=== PATIENT | male | born 1935 | race Caucasian/White ===

== ENCOUNTER 2023-01-15 05:27 | Inpatient (IN) | payer MEDICARE ==
[2023-01-15] MEDS ORDERED: Nitroglycerin 50 MG/250 ML BOT 250 ML ONE (05:41)
[2023-01-15 06:01] LABS: #Eosinphils 3.3 thou/uL (0.0-0.7); #Monocytes 0.8 thou/uL (0.11-0.59); %Basophils 0.2 % (0.0-1.0); %Eosinophils 18.1 % (0.0-10.0); %Lymphocytes 4.2 % (21.0-51.0); %Monocytes 4.6 % (0.0-10.0); %Neutrophils 72.4 % (42.0-75.0); Hematocrit 33.8 % (42.0-52.0); Hemoglobin 11.5 g/dL (14.0-18.0); Mean Corpuscular Hemoglobin 31.3 pg (27.0-31.0); Mean Corpuscular Volume 91.8 fl (78.0-98.0); Mean Platelet Volume 9.4 fL (7.4-10.4); Platelet Count 297 10x3/uL (130-400); Red Blood Cell (RBC) Count 3.68 mill/uL (4.70-6.10)
[2023-01-15 06:23] LABS: Troponin I 0.018 ng/mL (< 0.028)
[2023-01-15 06:26] LABS: ALT (SGPT) 10 U/L (8-55); AST (SGOT) 12 U/L (5-34); Albumin 4.3 g/dL (3.4-4.8); Alkaline Phosphatase 93 U/L (40-110); Anion Gap 17 mmol/L (10-20); BUN (Urea Nitrogen) 20 mg/dL (8.4-25.7); Bilirubin, Total 0.4 mg/dL (0.2-1.2); Calc. Creatinine Clearance 0 mL/min (70-130); Calcium 9.1 mg/dL (7.8-10.44); Carbon Dioxide 24 mmol/L (23-31); Chloride 98 mmol/L (98-107); Estimated GFR 42; Globulin 2.7 g/dL (2.4-3.5); Glucose 207 mg/dL (83-110); Sodium 135 mmol/L (136-145)
[2023-01-15 06:28] LABS: INR-International Normal Ratio 1.2; PTT 58.2 sec (22.9-36.1); Prothrombin Time 15.6 sec (12.0-14.7)
[2023-01-15] MEDS ORDERED: Ondansetron PF 4 MG/2 ML Vial IVP PRN (07:39)
[2023-01-15] MEDS ORDERED: Ondansetron ODT 4 MG TAB PO PRN (07:39)
[2023-01-15] MEDS: Aspirin Chewable 81 MG TAB PO SCH (09:26)
[2023-01-15 09:57] VITALS: BMI 28.3
[2023-01-15] MEDS ORDERED: Amlodipine 5 MG TAB PO SCH (10:15)
[2023-01-15] MEDS ORDERED: Atenolol 25 MG TAB PO SCH (10:15)
[2023-01-15 10:40] LABS: Magnesium 1.6 mg/dL (1.6-2.6)
[2023-01-15 11:10] LABS: Troponin I 3.279 ng/mL (< 0.028)
[2023-01-15] MEDS: Clopidogrel Bisulfate 75 MG TAB PO SCH (11:34)
[2023-01-15 13:32] LABS: Troponin I 6.498 ng/mL (< 0.028)
[2023-01-15] MEDS ORDERED: FLU VACC QS2023(65UP)/MF59C/PF 60 MCG/0.5 ML SYRINGE IM ONE (14:00)
[2023-01-15] MEDS: Acetaminophen 325 MG TAB PO PRN (16:48)
[2023-01-15] MEDS: Famotidine 20 MG TAB PO SCH (21:25)
[2023-01-16 04:54] LABS: Hematocrit 31.7 % (42.0-52.0); Hemoglobin 10.4 g/dL (14.0-18.0); Manual Diff?? YES; Mean Corpuscular HGB CONC 32.8 g/dL (32.0-36.0); Mean Corpuscular Hemoglobin 30.6 pg (27.0-31.0); Mean Corpuscular Volume 93.2 fl (78.0-98.0); Mean Platelet Volume 9.6 fL (7.4-10.4); Platelet Count 274 10x3/uL (130-400); RBC Distribution Width 14.3 % (11.5-14.5); White Blood Cell (WBC) Count 11.4 10x3/uL (4.8-10.8)
[2023-01-16 05:02] LABS: Delete Auto Diff?? YES
[2023-01-16 05:18] LABS: Critical Call Chem Troponin I RESULT DECREASING; Troponin I 4.759 ng/mL (< 0.028)
[2023-01-16 05:27] LABS: Anion Gap 13 mmol/L (10-20); BUN (Urea Nitrogen) 21 mg/dL (8.4-25.7); Calc. Creatinine Clearance 50 mL/min (70-130); Calcium 8.8 mg/dL (7.8-10.44); Carbon Dioxide 28 mmol/L (23-31); Chloride 99 mmol/L (98-107); Estimated GFR 46; Glucose 133 mg/dL (83-110); Magnesium 1.9 mg/dL (1.6-2.6); Potassium 3.8 mmol/L (3.5-5.1); Sodium 136 mmol/L (136-145)
[2023-01-16 05:32] LABS: Band 8 % (5-11); CellaVision Operator ID LAB.CLH1; Eosinophils 36 % (0-10); Hypochromia SLIGHT = 6-15 cells HPF (0-5); Lymphocytes 10 % (21-51); Macrocytosis SLIGHT = 6-15 cells HPF (0-5); Monocytes 1 % (0-10); Neutrophil 44 % (42-75); Platelet Adequacy Comment Platelets Normal; Poikilocytosis MODERATE=16-30 cells HPF (0-5); Polychromasia SLIGHT = 2-3 cells HPF (0-2); Total Cell Count 100
[2023-01-16] MEDS: Aspirin Chewable 81 MG TAB PO SCH (08:44)
[2023-01-16] MEDS: Clopidogrel Bisulfate 75 MG TAB PO SCH (08:44)
[2023-01-16] MEDS: Amlodipine 5 MG TAB PO SCH (08:44)
[2023-01-16] MEDS: Atenolol 25 MG TAB PO SCH (08:44)
[2023-01-16] MEDS ORDERED: HumaLOG 300 UNITS/3 ML VIAL SC PRN (09:30)
[2023-01-16] MEDS ORDERED: Dextrose 5% in Water 1,000 ML IV PRN (09:30)
[2023-01-16] MEDS ORDERED: Dextrose 50% Abboject 50 ML SYRINGE SLOW IVP PRN (09:30)
[2023-01-16] MEDS ORDERED: Glucagon 1 MG/ML KIT IM PRN (09:30)
[2023-01-16] MEDS ORDERED: Senokot 8.6 MG TAB PO PRN (18:32)
[2023-01-16] MEDS: Acetaminophen 325 MG TAB PO PRN (19:27)
[2023-01-16] MEDS: Famotidine 20 MG TAB PO SCH (19:28)
[2023-01-17] MEDS: Clopidogrel Bisulfate 75 MG TAB PO SCH (09:51)
[2023-01-17] MEDS: Atenolol 25 MG TAB PO SCH (09:51)
[2023-01-17] MEDS: Amlodipine 5 MG TAB PO SCH (09:51)
[2023-01-17] MEDS: Aspirin Chewable 81 MG TAB PO SCH (09:51)
[2023-01-17] MEDS ORDERED: Communication Order-Pharmacy FS SCH (13:00)
[2023-01-17] MEDS: Sodium Chloride 0.9% 1,000 ML IV SCH ×2 (17:09→21:47)
[2023-01-17] MEDS: Famotidine 20 MG TAB PO SCH (21:10)
[2023-01-18] MEDS: Sodium Chloride 0.9% 1,000 ML IV SCH ×4 (05:51→21:50)
[2023-01-18] MEDS: Aspirin Chewable 81 MG TAB PO SCH (05:52)
[2023-01-18] MEDS: Clopidogrel Bisulfate 75 MG TAB PO SCH (05:52)
[2023-01-18] MEDS: Atenolol 25 MG TAB PO SCH (05:52)
[2023-01-18] MEDS: Amlodipine 5 MG TAB PO SCH (05:53)
[2023-01-18 06:14] LABS: Hemoglobin 10.1 g/dL (14.0-18.0); Manual Diff?? YES; Mean Corpuscular HGB CONC 33.7 g/dL (32.0-36.0); Mean Corpuscular Hemoglobin 30.9 pg (27.0-31.0); Mean Corpuscular Volume 91.7 fl (78.0-98.0); Mean Platelet Volume 9.8 fL (7.4-10.4); Platelet Count 255 10x3/uL (130-400); Red Blood Cell (RBC) Count 3.27 mill/uL (4.70-6.10); White Blood Cell (WBC) Count 12.1 10x3/uL (4.8-10.8)
[2023-01-18 06:17] LABS: Delete Auto Diff?? YES
[2023-01-18 06:38] LABS: Anion Gap 12 mmol/L (10-20); BUN (Urea Nitrogen) 19 mg/dL (8.4-25.7); Calc. Creatinine Clearance 54 mL/min (70-130); Calcium 8.8 mg/dL (7.8-10.44); Carbon Dioxide 27 mmol/L (23-31); Chloride 103 mmol/L (98-107); Estimated GFR 52; Glucose 122 mg/dL (83-110); Potassium 3.9 mmol/L (3.5-5.1); Sodium 138 mmol/L (136-145)
[2023-01-18 06:43] LABS: Band 10 % (5-11); CellaVision Operator ID LAB.CLH1; Eosinophils 46 % (0-10); Hypochromia SLIGHT = 6-15 cells HPF (0-5); Lymphocytes 14 % (21-51); Metamyelocyte 1 % (0-0); Monocytes 1 % (0-10); Neutrophil 29 % (42-75); Platelet Adequacy Comment Platelets Normal; Polychromasia SLIGHT = 2-3 cells HPF (0-2); Total Cell Count 101
[2023-01-18] MEDS ORDERED: Lidocaine 1% (PF) 30 ML VIAL ONE (09:14)
[2023-01-18] MEDS ORDERED: Heparin 10,000 UNITS/ 10 ML VIAL ONE (09:14)
[2023-01-18] MEDS ORDERED: Midazolam HCl 2 mg/2 ml Vial ONE (11:42)
[2023-01-18] MEDS ORDERED: fentaNYL 50 mcg/mL 1 mL Vial ONE (11:42)
[2023-01-18] MEDS ORDERED: Nitroglycerin 0.4 MG TAB (25 Tab Bottle) SL PRN (12:43)
[2023-01-18] MEDS ORDERED: Sodium Chloride 0.9% 200 ML IV PRN (12:43)
[2023-01-18] MEDS ORDERED: Acetaminophen/Codeine 30-300mg Tablet PO PRN ×2 (12:43)
[2023-01-18] MEDS: Famotidine 20 MG TAB PO SCH (21:47)
[2023-01-19] MEDS: Sodium Chloride 0.9% 1,000 ML IV SCH (07:30)
[2023-01-19 08:12] VITALS: TEMP 98.5
[2023-01-19] MEDS: Clopidogrel Bisulfate 75 MG TAB PO SCH (08:28)
[2023-01-19] MEDS: Atenolol 25 MG TAB PO SCH (08:28)
[2023-01-19] MEDS: Aspirin Chewable 81 MG TAB PO SCH (08:29)
[2023-01-19] MEDS: Amlodipine 5 MG TAB PO SCH (08:29)
[2023-01-19] MEDS ORDERED: Isosorbide Mononitrate 30 MG ER.TAB PO SCH (09:00)
[2023-01-19 09:20] LABS: Anion Gap 13 mmol/L (10-20); BUN (Urea Nitrogen) 13 mg/dL (8.4-25.7); Calc. Creatinine Clearance 48 mL/min (70-130); Calcium 8.7 mg/dL (7.8-10.44); Carbon Dioxide 23 mmol/L (23-31); Chloride 102 mmol/L (98-107); Estimated GFR 63; Glucose 131 mg/dL (83-110); Potassium 3.9 mmol/L (3.5-5.1); Sodium 134 mmol/L (136-145)
[2023-01-19 12:17] VITALS: BP 136/66
== END 2023-01-19 13:48 | disposition home or self-care (01) | DRG 280 ==
LOC: ERS 05:27 → SUATTDRO 05:27 → INTOOBSV 07:35 → 2NO 07:35 → OBSVTOIN 12:02
PROVIDERS: ADMIT Internal Medicine; ATTEND Internal Medicine
PROC: 4A023N7 Measurement of Cardiac Sampling and Pressure, Left Heart, Percutaneous Approach (ICD-10-PCS; principal; 2023-01-18)
PROC: B2151ZZ Fluoroscopy of Left Heart using Low Osmolar Contrast (ICD-10-PCS; 2023-01-18)
PROC: B2111ZZ Fluoroscopy of Multiple Coronary Arteries using Low Osmolar Contrast (ICD-10-PCS; 2023-01-18)
DX: I21.4 Non-ST elevation (NSTEMI) myocardial infarction (principal); I50.33 Acute on chronic diastolic (congestive) heart failure; I13.0 Hypertensive heart and chronic kidney disease with heart failure and stage 1 through stage 4 chronic kidney disease, or unspecified chronic kidney disease; I25.110 Atherosclerotic heart disease of native coronary artery with unstable angina pectoris; E78.5 Hyperlipidemia, unspecified; E11.22 Type 2 diabetes mellitus with diabetic chronic kidney disease; I25.2 Old myocardial infarction; Z95.1 Presence of aortocoronary bypass graft; Z95.5 Presence of coronary angioplasty implant and graft; Z88.2 Allergy status to sulfonamides; Z79.82 Long term (current) use of aspirin; Z79.899 Other long term (current) drug therapy; Z79.84 Long term (current) use of oral hypoglycemic drugs; D72.829 Elevated white blood cell count, unspecified; E78.00 Pure hypercholesterolemia, unspecified; Z90.89 Acquired absence of other organs; N18.30 Chronic kidney disease, stage 3 unspecified
CPT/HCPCS: 36415; 36416; 71045; 80048; 80053; 83735; 83880; 84443; 84484; 85025; 85610; 85730; 93005; 93459; 93798; 94760; 96365; 96372; 99152; C1769; C1894; G0378; J1644; J1650; J2001; J2250; J3010; J7050

== ENCOUNTER 2023-02-26 09:21 | Outpatient (CLI) | payer MEDICARE | END 2023-02-26 09:22 | disposition home or self-care (01) | LOC: BICULT 09:21 | PROVIDERS: ATTEND Internal Medicine Nephrology | DX: I12.9 Hypertensive chronic kidney disease with stage 1 through stage 4 chronic kidney disease, or unspecified chronic kidney disease (principal); N18.9 Chronic kidney disease, unspecified; R93.41 Abnormal radiologic findings on diagnostic imaging of renal pelvis, ureter, or bladder | CPT/HCPCS: 76770; 93975 ==

== ENCOUNTER 2023-03-02 12:33 | Emergency (ER) | payer MEDICARE ==
[2023-03-02 13:04] LABS: #Eosinphils 1.1 thou/uL (0.0-0.7); #Monocytes 0.6 thou/uL (0.11-0.59); #Neutrophils 3.6 thou/uL (1.40-6.50); %Basophils 0.4 % (0.0-1.0); %Lymphocytes 29.5 % (21.0-51.0); %Monocytes 8.3 % (0.0-10.0); %Neutrophils 47.5 % (42.0-75.0); Hematocrit 33.9 % (42.0-52.0); Hemoglobin 11.3 g/dL (14.0-18.0); Mean Corpuscular HGB CONC 33.3 g/dL (32.0-36.0); Mean Corpuscular Hemoglobin 31.2 pg (27.0-31.0); Mean Corpuscular Volume 93.6 fl (78.0-98.0); Mean Platelet Volume 9.4 fL (7.4-10.4); Platelet Count 261 10x3/uL (130-400); RBC Distribution Width 14.4 % (11.5-14.5); Red Blood Cell (RBC) Count 3.62 mill/uL (4.70-6.10); White Blood Cell (WBC) Count 7.6 10x3/uL (4.8-10.8)
[2023-03-02 13:24] LABS: ALT (SGPT) Less than 7 U/L (8-55); AST (SGOT) 11 U/L (5-34); Albumin 4.2 g/dL (3.4-4.8); Alkaline Phosphatase 68 U/L (40-110); Anion Gap 14 mmol/L (10-20); BUN (Urea Nitrogen) 19 mg/dL (8.4-25.7); Bilirubin, Total 0.4 mg/dL (0.2-1.2); Calc. Creatinine Clearance 0 mL/min (70-130); Calcium 9.2 mg/dL (7.8-10.44); Carbon Dioxide 28 mmol/L (23-31); Chloride 99 mmol/L (98-107); Estimated GFR 39; Glucose 111 mg/dL (83-110); Potassium 4.2 mmol/L (3.5-5.1); Protein, Total 7.2 g/dL (5.8-8.1); Sodium 137 mmol/L (136-145)
[2023-03-02 13:27] LABS: Troponin I Less than 0.010 ng/mL (< 0.028)
[2023-03-02] MEDS ORDERED: Furosemide 40 MG/4 ML VIAL ONE (14:19)
== END 2023-03-02 14:51 | disposition home or self-care (01) ==
LOC: ERS 12:33
DX: I13.0 Hypertensive heart and chronic kidney disease with heart failure and stage 1 through stage 4 chronic kidney disease, or unspecified chronic kidney disease (principal); I50.9 Heart failure, unspecified; E11.22 Type 2 diabetes mellitus with diabetic chronic kidney disease; N18.9 Chronic kidney disease, unspecified; R11.0 Nausea; J45.909 Unspecified asthma, uncomplicated; I25.2 Old myocardial infarction; I25.10 Atherosclerotic heart disease of native coronary artery without angina pectoris; Z79.899 Other long term (current) drug therapy; Z79.82 Long term (current) use of aspirin; Z79.84 Long term (current) use of oral hypoglycemic drugs
CPT/HCPCS: 36415; 71046; 80053; 83880; 84484; 85025; 93005; 96374; J1940

== ENCOUNTER 2023-10-20 13:50 | Emergency (ER) | payer MEDICARE ==
[~2023-10-20 13:50] MED LIST: Iopamidol-370 76% 500 ML MDV (1 ML CHARGE) ONE
[2023-10-20 14:52] LABS: #Basophils Less than 0.03 10x3/uL (0.0-0.2); %Basophils 0.2 % (0.0-1.0); %Lymphocytes 17.5 % (21.0-51.0); %Monocytes 8.5 % (0.0-10.0); %Neutrophils 66.5 % (42.0-75.0); Hematocrit 32.5 % (42.0-52.0); Hemoglobin 10.9 g/dL (14.0-18.0); Mean Corpuscular HGB CONC 33.5 g/dL (32.0-36.0); Mean Corpuscular Hemoglobin 29.4 pg (27.0-31.0); Mean Corpuscular Volume 87.6 fL (78.0-98.0); Mean Platelet Volume 9.4 fL (7.4-10.4); Platelet Count 240 10x3/uL (130-400); RBC Distribution Width 15.4 % (11.5-14.5); Red Blood Cell (RBC) Count 3.71 mill/uL (4.70-6.10)
[2023-10-20 15:07] LABS: ALT (SGPT) 10 U/L (8-55); AST (SGOT) 13 U/L (5-34); Albumin 3.5 g/dL (3.4-4.8); Alkaline Phosphatase 62 U/L (40-110); Anion Gap 13 mmol/L (10-20); BUN (Urea Nitrogen) 39 mg/dL (8.4-25.7); Bilirubin, Total 0.3 mg/dL (0.2-1.2); Calc. Creatinine Clearance 0 mL/min (70-130); Carbon Dioxide 29 mmol/L (23-31); Chloride 93 mmol/L (98-107); Estimated GFR 29; Globulin 2.8 g/dL (2.4-3.5); Glucose 131 mg/dL (83-110); Potassium 4.7 mmol/L (3.5-5.1); Protein, Total 6.3 g/dL (5.8-8.1); Sodium 130 mmol/L (136-145)
[2023-10-20 15:32] LABS: INR-International Normal Ratio 1.1; Prothrombin Time 14.1 sec (12.0-14.7); Troponin I Less than 0.010 ng/mL (< 0.028)
[2023-10-20 15:33] LABS: PTT 28.6 sec (22.9-36.1)
[2023-10-20] MEDS ORDERED: Acetaminophen 325 MG TAB ONE (15:36)
[2023-10-20] MEDS ORDERED: diphenhydrAMINE 50 MG/ML VIAL ONE (15:37)
[2023-10-20] MEDS ORDERED: Metoclopramide HCl 10 MG (2 mL) VIAL ONE (15:37)
[2023-10-20] MEDS ORDERED: hydrALAZINE 20 MG/ML VIAL ONE (15:37)
== END 2023-10-20 17:59 | disposition home or self-care (01) ==
LOC: ERS 13:50
DX: I16.0 Hypertensive urgency (principal); I13.0 Hypertensive heart and chronic kidney disease with heart failure and stage 1 through stage 4 chronic kidney disease, or unspecified chronic kidney disease; E11.22 Type 2 diabetes mellitus with diabetic chronic kidney disease; N18.9 Chronic kidney disease, unspecified; I50.9 Heart failure, unspecified
CPT/HCPCS: 36416; 70450; 70496; 70498; 80053; 83880; 84484; 85025; 85610; 85730; 93005; 94760; 96374; 96375; J0360; J1200; J2765